=== PATIENT | female | born 1995 | race Two or more races ===

== ENCOUNTER 2025-11-05 20:58 | Emergency (ER) | payer OTHER ==
[~2025-11-05] VITALS: Ht 157.5 cm; Wt 59.0 kg
[2025-11-06] MEDS ORDERED: KETOROLAC TROMETHAMINE 30 MG VIAL IM STA (00:06)
[2025-11-06] MEDS ORDERED: CEFTRIAXONE SODIUM 2,000 MG VIAL IV STA (00:07)
[2025-11-06] MEDS ORDERED: KETOROLAC TROMETHAMINE 15 MG VIAL IV STA (00:08)
[2025-11-06 01:10] LABS: BASO % 0.3 % (0.1-1.2); EOS # 0.13 (0.04-0.54); EOS % 1.8 % (0.7-7.0); LYMPH # 2.45 (1.18-3.74); LYMPH % 33.2 % (19.3-53.1); MEAN PLATELET VOLUME 10.50 fl (9.4-12.4); MONO # 0.47 (0.24-0.82); MONO % 6.4 % (4.7-12.5); NEUT # 4.31 (1.56-6.13); NEUT % 58.2 % (34.0-71.1); RED CELL DISTRIBUTION WIDTH 12.2 % (11.6-14.4)
[2025-11-06 01:40] LABS: ALT/SGPT 23.0 U/L (12-78); AST/SGOT 13.0 U/L (15-37); BILIRUBIN TOTAL 0.28 mg/dL (0.3-1.2); BUN CREA RATIO 16.0 (7.0-25.0); CREATININE SERUM 0.75 mg/dL (0.55-1.02); GFR 90.13; GLOBULINA 3.5 G/DL (2.4-3.5); GLUCOSE FASTING 107.0 mg/dL (65-100); OSMOLALITY SERUM 281.0 MOSM/KG (275-295)
== END 2025-11-06 03:28 | disposition home or self-care (01) ==
LOC: ER 20:59
PROVIDERS: General Practice
DX: N61.0 Mastitis without abscess (principal); Z91.041 Radiographic dye allergy status